=== PATIENT | male | born 2000 | race Caucasian/White ===

== ENCOUNTER 2021-02-12 16:51 | Emergency (ER) | payer BC, SELFPAY ==
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
[2021-02-12 17:21] VITALS: BP 125/83; PULSE 109; RESP 18; TEMP 36.1; O2SAT 100
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
--- NOTE | 2021-02-12 18:29 | PC.NURSE ---
A patient in the waiting room came to intake and states she saw the patient get into a vehicle and leave the facility.
== END 2021-02-12 18:30 | disposition left against medical advice (07) ==
DX: M25.552 Pain in left hip (principal)
CPT/HCPCS: 73502; 73552; 73590; 99199

== ENCOUNTER 2021-06-16 06:44 | Emergency (ER) | payer BC, SELFPAY ==
[2021-06-16 06:45] VITALS: BP 103/59; PULSE 85; RESP 12; TEMP 37; O2SAT 100
--- NOTE | 2021-06-16 07:06 | ECG_ITS ---
Measurements Intervals [place] Rate: 68 P: -18 IN: 118 QRS: 74 QRSD: 88 T: 71 QT: 387 QTc: 414 Interpretive Statements SINUS RHYTHM WITH SHORT IN INTERVAL NONSPECIFIC ST ELEVATION IN ANTEROLAT/INF LEADS BORDERLINE ECG Electronically Signed On 06-16-2021 7:51:41 CDT by Edwin Cosby D.O.
[2021-06-16 07:20] LABS: Basophils Absolute Auto 0.1 K/mm3 (0.0-0.1); Basophils Percent Auto 0.7 % (0.2-1.2); Eosinophils Absolute Auto 0.2 K/mm3 (0-0.3); Hematocrit 40.2 % (42.0-52.0); Immature Granulocyte Absolute 0.04 K/mm3 (0.00-0.031); Immature Granulocyte Percent A 0.5 % (0-0.5); Lymphocytes Absolute Auto 2.29 K/mm3 (0.9-3.2); Lymphocytes Percent Auto 28.2 % (18.3-44.2); Mean Corpuscular HGB Conc 32.3 g/dl (32-36); Mean Corpuscular Hemoglobin 30.5 pg (26-34); Mean Corpuscular Volume 94.4 fl (80-100); Mean Platelet Volume 10.2 fl (7.4-10.4); Monocytes Absolute Auto 0.8 K/mm3 (0.1-0.6); Neutrophils Absolute Auto 4.7 K/mm3 (1.3-6.7); Neutrophils Percent Auto 57.6 % (45.5-73.1); Platelet Count Result 224 k/mm3 (150-375); Red Blood Count 4.26 M/mm3 (4.6-6.20); Red Cell Distribution Width 12.5 % (11.5-14.5); White Blood Count 8.1 K/mm3 (4.5-10.0)
[2021-06-16 07:30] LABS: Acetaminophen < 10 ug/mL (10-30); Ethanol < 10 mg/dL (<10); Salicylate < 1.0 mg/dL (2-20)
[2021-06-16 07:32] LABS: Add Urine Microscopic? YES; Amorphous Sediment Urine Few; Appearance Urine Cloudy (Clear); Bilirubin Urine Negative (Negative); Blood Urine Negative (Negative); Color Urine Yellow (Yellow); Glucose Urine UA Negative (Negative); Ketones Urine Negative (Negative); Leukocyte Esterase Ur 1+ LEU/UL (Negative); Mucus Urine Rare /lpf; Nitrate Urine Negative (Negative); Protein Urine 1+ mg/dL (Negative); RBC Urine 0-2 /hpf (0-2); Specific Grav Ur 1.018 (1.001-1.035); Urobilinogen Urine Negative mg/dL (<2.0); WBC Urine 21-30 /hpf
[2021-06-16 07:34] LABS: Alanine Aminotransferase 17 U/L (4-50); Albumin Level 4.3 g/dL (3.5-5.1); Alkaline Phosphatase 33 U/L (38-126); Anion Gap 5 mmol/L (8-16); Aspartate Amino Transferase 27 U/L (17-59); Bilirubin,Total 0.3 mg/dL (0.2-1.3); Blood Urea Nitrogen 11 mg/dL (9-20); Calcium 9.4 mg/dL (8.4-10.2); Carbon Dioxide 30 mmol/L (22-30); Chloride 103 mmol/L (98-107); Estimated CRCL calculation 99 ml/min; Estimated Glomerular Filt Rate > 60; Glucose 107 mg/dL (65-110); Potassium 3.5 mmol/L (3.4-5.0); Sodium 138 mmol/L (137-145)
--- NOTE | 2021-06-16 07:40 | PC.NURSE ---
Received call from brother asking about pt status. Brother told us to call sister's phone, Linda [phone], when pt is ready to be discharged.
--- NOTE | 2021-06-16 07:46 | ED.ABDPAIN ---
HPI - Abdominal Pain General Chief Complaint: Abdominal Pain Stated Complaint: abd pain caused by swallowing 2-3 gms of meth Time Seen by Provider: 06/16/21 07:08 History of Present Illness HPI narrative: 21 yo male brought in by EMS c/o abdominal pain. He reportedly swallowed methamphetamine after being pulled over by police. He denies any additional drug use. He says that he has diffuse abdominal pain. On my evaluation he is quite somnolent and not consistently staying awake to answer question. Related Data Home Medications Medication Instructions Recorded Confirmed No Home Medications 02/12/21 02/12/21 Allergies Allergy/AdvReac Type Severity Reaction Status Date / Time No Known Allergies Allergy Verified 02/12/21 17:26 Review of Systems Review of Systems: ROS unobtainable: Yes unobtainable due to mental status Cardiovascular: Cardiovascular: Denies chest pain Respiratory: Respiratory: Denies dyspnea Gastrointestinal: Gastrointestinal: Reports abdominal pain and Reports nausea PMFSH Social History Social History (Updated 06/16/21 @ 20:45 by Altaf Victoria MD) Substance use type: amphetamines Gender identity (if verbalized by the patient): Male Exam Const: General: healthy appearing and no acute distress Nutritional Appearance: well nourished HENMT: Mouth: Yes dry mucous membranes Eyes: Pupils: Equal, round and reactive pupils present Neck: Neck: normal visual inspection Resp: Effort & Inspection: normal respiratory effort Auscultation: clear to auscultation bilaterally Cardio: Rate: tachycardic Rhythm: regular rhythm GI: GI Palp: Yes Soft to palpation and No Tenderness to palpation present (GI) Skin: General skin exam: normal color Neuro: General: moves all extremities Other: Awakens to vigorous stimulation and answers questions appropriately Extrem: General: normal to inspection Course Vital Signs Vital signs: Vital Signs Temperature 37.0 C 06/16/21 06:45 Pulse Rate 85 06/16/21 06:45 Respiratory Rate 12 06/16/21 06:45 Blood Pressure 103/59 L 06/16/21 06:45 Pulse Oximetry 100 06/16/21 06:45 Temperature 37.0 C 06/16/21 06:45 Pulse Rate 60 06/16/21 10:27 Respiratory Rate 12 06/16/21 10:27 Blood Pressure 114/56 L 06/16/21 10:27 Pulse Oximetry 99 06/16/21 10:27 MDM - Abdominal Pain MDM Narrative Medical decision making narrative: DDx: overdose, coingestion, GERD, malingering, other Medical Records Attestation: I reviewed the patient's medical records. Lab Data Attestation: I reviewed the patient's lab results. Result diagrams: 06/16/21 07:10 06/16/21 07:10 Labs: Lab Results 06/16/21 06/16/21 06/16/21 Range/Units 07:10 07:10 07:13 WBC 8.1 (4.5-10.0) K/mm3 RBC 4.26 L (4.6-6.20) M/mm3 Hgb 13.0 L (14.0-18.0) g/dL Hct 40.2 L (42.0-52.0) % MCV 94.4 (80-100) fl MCH 30.5 (26-34) pg MCHC 32.3 (32-36) g/dl RDW 12.5 (11.5-14.5) % Plt Count 224 (150-375) k/mm3 MPV 10.2 (7.4-10.4) fl Immature Gran % (Auto) 0.5 (0-0.5) % Neut % (Auto) 57.6 (45.5-73.1) % Lymph % (Auto) 28.2 (18.3-44.2) % [place] % (Auto) 10.0 H (2.6-8.5) % Eos % (Auto) 3.0 (0-4.4) % Baso % (Auto) 0.7 (0.2-1.2) % Lymph # (Auto) 2.29 (0.9-3.2) K/mm3 [place] # (Auto) 0.8 H (0.1-0.6) K/mm3 Eos # (Auto) 0.2 (0-0.3) K/mm3 Baso # (Auto) 0.1 (0.0-0.1) K/mm3 Abs Immat Gran (auto) 0.04 H (0.00-0.031) K/mm3 Absolute Neuts (auto) 4.7 (1.3-6.7) K/mm3 Absolute Nucleated RBC 0.0 (0.0-0.012) K/mm3 Nucleated RBC % 0.0 (0.0-0.2) % Sodium 138 (137-145) mmol/L Potassium 3.5 (3.4-5.0) mmol/L Chloride 103 (98-107) mmol/L Carbon Dioxide 30 (22-30) mmol/L Anion Gap 5 L (8-16) mmol/L BUN 11 (9-20) mg/dL Creatinine 1.00 (0.7-1.3) mg/dL Estim Creat Clear Calc 99 ml/min Estimated GFR > 60 (59 - ) Gluco
[2021-06-16 07:49] VITALS: BP 95/48; PULSE 68; RESP 14; O2SAT 96
[2021-06-16] MEDS: SODIUM CHLORIDE 0.9% IV 1,000 ML 999 ML IV CONT ×2 (07:52→10:39)
[2021-06-16 08:24] LABS: Barbiturate Screen Urine Negative (Negative); Benzodiazepines Screen Urine Negative (Negative)
[2021-06-16 08:35] LABS: Cannabinoid Screen Urine Positive (Negative); Cocaine Screen Urine Negative (Negative); Methadone Screen Urine Negative (Negative); Opiate Screen Urine Negative (Negative); Phencyclidine Screen Urine Negative (Negative)
[2021-06-16 08:45] VITALS: BP 100/56; PULSE 61; RESP 14; O2SAT 98
[2021-06-16 09:48] VITALS: BP 99/52; PULSE 53; RESP 14; O2SAT 98
[2021-06-16 10:27] VITALS: BP 114/56; PULSE 60; RESP 12; O2SAT 99
--- NOTE | 2021-06-16 10:55 | PC.NURSE ---
Went to room to check on pt, pt is not in room - girlfriend at bedside not in room. Fluids dc'd by patient and NS on the floor. [place] [employer] notified immediately and scrap charger made aware. Spoke to Linda at [phone].
--- NOTE | 2021-06-16 10:59 | PC.NURSE ---
Uknown if pt dc'd IV, no evidence of removal left in room - PD notified.
--- NOTE | 2021-06-16 11:00 | PC.NURSE ---
Visitor log reviewed for pt girlfriend that left w/ pt - name and address given to PD. Mckeon (Gregory?) [address] [facility] in [place].
== END 2021-06-16 11:03 | disposition left against medical advice (07) ==
PROVIDERS: Emergency Provider Emergency Medicine
DX: T43.624A Poisoning by amphetamines, undetermined, initial encounter (principal); E86.0 Dehydration
CPT/HCPCS: 36415; 80053; 80307; 81001; 84443; 85025; 87086; 93005; 96360; 99283; J7030

== ENCOUNTER 2022-06-15 12:00 | Emergency (ER) | payer BC, SELFPAY ==
[2022-06-15 12:09] VITALS: BP 113/53; PULSE 65; RESP 16; TEMP 36.7; O2SAT 100
--- NOTE | 2022-06-15 12:17 | ED.URI ---
HPI - URI/Sore Throat General Chief Complaint: Upper Respiratory Infection Stated Complaint: Sore Throat Time Seen by Provider: 06/15/22 12:17 History of Present Illness HPI Narrative: 22-year-old male presented for complaint of sore throat, onset this morning. He states it felt like it was swelling. Endorses significant improvement since awakening. States he felt nauseous when he woke up. Denies vomiting, diarrhea, headache, fevers or chills. Denies lip, tongue, or throat swelling, difficulty breathing. He is able to tolerate oral intake without difficulty. He has not taken anything for symptoms. Denies sick contacts. Related Data Home Medications Medication Instructions Recorded Confirmed No Home Medications 02/12/21 06/15/22 Allergies Allergy/AdvReac Type Severity Reaction Status Date / Time No Known Allergies Allergy Verified 06/15/22 12:12 Review of Systems Review of Systems: CONSTITUTIONAL: Denies body aches, fever, chills, or sweats. EYES: Denies visual changes, redness, or discharge. ENT: Denies rhinorrhea, congestion, or otalgia. CARDIOVASCULAR: Denies chest pain, palpitations, or edema. RESPIRATORY: Denies dyspnea. GASTROINTESTINAL: Denies abdominal pain, vomiting, or diarrhea. SKIN: Denies rash, itching, or wounds. MUSCULOSKELETAL: Denies back pain, joint pain, or myalgia. NEUROLOGIC: Denies headache PMFSH Social History Social History Substance use type: amphetamines Gender identity (if verbalized by the patient): Male Exam Narrative: GENERAL: well-appearing ENT: Mucous membranes moist. TM pearly chowdhury with normal light reflex bilaterally. Oropharynx erythematous without lesions. Tonsils absent. No drooling, no hoarseness, no trismus, uvula midline. No tripod positioning, hot potato voice, or soft palate swelling. NECK: Supple. No lymphadenopathy CHEST: Clear to auscultation, breath sounds equal. Speaks in full sentences HEART: Regular rate and rhythm. No murmur heard. SKIN: Warm, dry, no rash. NEURO: Alert and oriented x3. Course Course Emergency Course: Patient is aware of diagnosis, understands and agrees to treatment plan. Anticipatory guidance given. Patient agrees to follow-up as directed and is aware of reasons to seek care at the emergency department. Portions of this record may have been created with voice recognition software Level of Care: Express Care Visit Vital Signs Vital signs: Vital Signs Temperature 98.0 F 06/15/22 12:09 Pulse Rate 65 06/15/22 12:09 Respiratory Rate 16 06/15/22 12:09 Blood Pressure 113/53 L 06/15/22 12:09 Pulse Oximetry 100 06/15/22 12:09 Oxygen Delivery Room Air 06/15/22 12:09 Temperature 98.0 F 06/15/22 12:09 Pulse Rate 65 06/15/22 12:09 Respiratory Rate 16 06/15/22 12:09 Blood Pressure 113/53 L 06/15/22 12:09 Pulse Oximetry 100 06/15/22 12:09 Oxygen Delivery Room Air 06/15/22 12:09 MDM - URI/Sore Throat MDM Narrative Medical decision making narrative: strep culture sent. Advise supportive treatments. Patient is appropriate for outpatient treatment and follow-up. Differential Diagnosis Differential diagnosis: Likely upper respiratory infection, viral infection and pharyngitis Discharge Plan Discharge Clinical Impression: Pharyngitis Qualifiers: Pharyngitis/tonsillitis etiology: unspecified etiology Qualified Code(s): J02.9 - Acute pharyngitis, unspecified Patient Disposition: Home, Self-Care Condition: Stable Instructions: Antibiotic Form, Pharyngitis (ED) Additional Instructions: Strep culture swab sent You will be notified in a few days if the culture comes back positive for strep, and appropriate antibiotics will be called in at that time. if symptoms are due to a viral illness, it is not treated with antibiotics. Viral symptoms can be present for up to 10-14 days. Recommend Flonase spray and Zyrtec fo
== END 2022-06-15 12:31 | disposition home or self-care (01) ==
PROVIDERS: Emergency Provider Nurse Practitioner Family
DX: J02.9 Acute pharyngitis, unspecified (principal)
CPT/HCPCS: 87081; 99212; G0463

== ENCOUNTER 2024-07-05 16:48 | Emergency (ER) | payer BC, SELFPAY ==
--- NOTE | 2024-07-05 16:50 | ED.DENTAL ---
HPI - Dental/Oral General Chief complaint: Dental/Oral Stated complaint: Dental Pain Time Seen by Provider: 07/05/24 16:50 Source: patient Mode of arrival: ambulatory Limitations: no limitations History of Present Illness HPI Narrative: Willi is a 24-year-old male patient presenting to the clinic today with complaints of dental pain. He reports symptoms started over the last day and half. Thinks he may have a abscess to the left lower jaw and is also having pain to the right upper jaw. Has very poor dentition with multiple cavities and tooth fractures. History of meth use. He denies any fever or chills. Has been taking Aleve/ibuprofen without relief Related Data Allergies Allergy/AdvReac Type Severity Reaction Status Date / Time No Known Allergies Allergy Verified 07/05/24 16:50 Review of Systems Review of Systems: Pertinent positives per HPI. Patient denies any fever, chills, rash, headache, visual changes, dizziness, cough, shortness of breath, chest pain, palpitations, nausea, vomiting, diarrhea, constipation, abdominal pain, or any urinary issues. [facility] Social History Social History Substance use type: amphetamines Gender identity (if verbalized by the patient): Male Comments At the time of my signature, I reviewed and agree with the nursing past medical, surgical, social, and family history. There is no relevant family history pertinent to the patient complaint. Exam Narrative: General: Well-developed, well nourished, in no apparent distress Head: Normocephalic, atraumatic Eyes: Pupils equally round and reactive to light bilaterally, EOM intact, sclera and conjunctive clear, no discharge, lids normal Ears: TMs intact and clear, ear canals clear, no drainage, grossly hearing normal. Nose: Nares patent, no discharge, no inflammation, no sinus tenderness. Mouth: Oral pharynx without lesions or masses, poor dentition with multiple cavities and fractured teeth, MMM. Pustule lesions to the right upper gum and the left lower gums around teeth numbers 2 and 3 and number 19 and 18 Neck: Supple, trachea midline, no enlargement of anterior or posterior cervical nodes, no thyroid masses or goiter palpable. Cardio: Regular rate and rhythm, s1 and s2 normal, no murmur appreciated. Resp: Clear to auscultation bilaterally, no rhonchi, rales, wheezing or rubs Course Course Emergency Course: Portions of this record may have been created with voice recognition software. Level of Care: Express Care Visit Vital Signs Vital signs: Vital signs reviewed MDM - Dental/Oral MDM Narrative Medical decision making narrative: At the time of visit patient is resting comfortably on the exam table. Patient appears to be nontoxic. Plan: I suspect patient has a dental abscess. Prescription for Augmentin was sent to the pharmacy. Follow-up dentist as soon as possible. Supportive measures were discussed with the patient and they voiced understanding discharge instructions and agrees to treatment plan. Return precautions reviewed Differential Diagnosis Differential diagnosis: Likely gingival abscess, dental caries, toothache, dental abscess, fracture of tooth and aphthous ulcer Discharge Plan Discharge Clinical Impression: Dental abscess Patient Disposition: Home, Self-Care Condition: Stable Instructions: Antibiotic Form, Dental Abscess (ED) Additional Instructions: Take Augmentin as prescribed Increase fluids and stay well hydrated May take Tylenol/Motrin as needed for pain May apply Orajel to the affected area to help alleviate pain Take amoxicillin as prescribed Follow-up with your dentist as soon as possible Prescriptions: New amoxicillin-pot clavulanate 875-125 mg tablet 1 tablet PO Q12H 10 Days Qty: 20 0RF Follow-up/Referrals: UNKNOWN,DOCTOR [Non-Staff] - Time of Disposition: 17:14 [facility] Nurs[facility]
[2024-07-05 16:58] VITALS: BP 116/68; PULSE 60; RESP 18; TEMP 37.2; O2SAT 100
== END 2024-07-05 17:23 | disposition home or self-care (01) ==
PROVIDERS: Emergency Provider Nurse Practitioner Family
DX: K04.7 Periapical abscess without sinus (principal)
CPT/HCPCS: 99213; G0463

== ENCOUNTER 2024-09-09 11:35 | Emergency (ER) | payer BC, SELFPAY ==
--- NOTE | ~2024-09-09 | XR_ITS ---
EXAMINATION: XR elbow RT min 3V DATE: 09/09/2024 12:13 INDICATION: Right elbow injury. TECHNIQUE: 4 views of right elbow were obtained. COMPARISON: None. FINDINGS: Alignment is normal. No fracture. Joint spaces are normal. No elbow joint effusion. IMPRESSION: 1. No fracture. Reviewed, dictated and finalized at location A. IMPRESSION: 1. No fracture.
--- NOTE | 2024-09-09 11:39 | ED.UPPEXIN ---
HPI - Extremity Injury (Upper) General Chief Complaint: Extremity Injury, Upper Stated Complaint: Right Elbow Pain Time Seen by Provider: 09/09/24 12:19 Source: patient and RN notes reviewed Mode of arrival: ambulatory Limitations: no limitations History of Present Illness HPI narrative: [age] old male presents concern for right elbow pain. Reports yesterday he was working on his truck, he slipped and landed on his elbow. He reports pain with extension. He reports tenderness. He took ibuprofen complaint: injury to: right and elbow Related Data Home Medications Medication Instructions Recorded Confirmed No Home Medications 09/09/24 09/09/24 Allergies Allergy/AdvReac Type Severity Reaction Status Date / Time No Known Allergies Allergy Verified 09/09/24 11:39 Review of Systems Review of Systems: CONSTITUTIONAL: Denies malaise, chills, sweats, or fever. SKIN: Denies rash or itching, open skin, laceration, abrasion, redness, warmth MUSCULOSKELETAL: Reports right elbow pain and swelling NEUROLOGIC: Denies numbness, weakness All systems reviewed & are unremarkable except as noted in HPI and below PMFSH Social History Social History Substance use type: amphetamines Gender identity (if verbalized by the patient): Male Comments At time of signature, agree with nursing past medical, surgical, social and family history. There is no relevant family history pertinent to the presenting complaint Exam Narrative: GENERAL: Well-appearing, well-nourished, and in no acute distress. HEAD: Normocephalic, atraumatic. EYES: PERRLA, conjunctivae clear NECK: Supple. CHEST: Speaks in full sentences. No respiratory distress. HEART: Regular rate and rhythm. Normal and equal peripheral pulses. EXTREMITIES: Right elbow, right upper extremity has grossly normal strength and sensation, grossly normal range of motion. Mild elbow edema without erythema or ecchymosis. 5/5 strength with elbow flexion and extension. Normal sensation with sensitivity to light touch and pain. Lateral elbow tenderness. No open wounds, no skin tenting, no devitalized tissue or atrophy, no trophic changes, no obvious deformity, alignment normal, nearby joints and structures intact. Distal pulses palpable and equal bilaterally, skin warm, dry, pink. Capillary refill less than 3 seconds. SKIN: Warm, dry, no rash. NEURO: Alert and oriented x3. PSYCH: Normal mood and affect Course Course Emergency Course: Patient is aware of diagnosis, understands and agrees to treatment plan. Anticipatory guidance given. Patient agrees to follow-up as directed and is aware of reasons to seek care at the emergency department. Portions of this record may have been created with voice recognition software Level of Care: Express Care Visit Vital Signs Vital signs: Reviewed. MDM - Extremity Injury (Upper) MDM Narrative Medical decision making narrative: Patients injury and pain is consistent with musculoskeletal etiology. No signs of neurological or vascular compromise on exam. Compartments and tissues are soft without signs of compartment syndrome. Pain is felt appropriate for further evaluation on an outpatient basis. Imaging Data My impression: Images reviewed, interpreted by radiologist, agree, see report. Radiologist's impression: EXAMINATION: XR elbow RT min 3V DATE: 09/09/2024 12:13 INDICATION: Right elbow injury. TECHNIQUE: 4 views of right elbow were obtained. COMPARISON: None. FINDINGS: Alignment is normal. No fracture. Joint spaces are normal. No elbow joint effusion. IMPRESSION: 1. No fracture. Critical Care Time Critical Care Time Critical Care Time: No Discharge Plan Discharge Clinical Impression: Contusion of elbow, right Patient Disposition: Home, Self-Care Condition: Stable Instructions: Contusion in Adults (ED) Additional Instructions: Avoid
[2024-09-09 11:46] VITALS: BP 103/70; PULSE 73; RESP 18; TEMP 37; O2SAT 99
== END 2024-09-09 12:35 | disposition home or self-care (01) ==
PROVIDERS: Emergency Provider Nurse Practitioner
DX: S50.01XA Contusion of right elbow, initial encounter (principal); W01.0XXA Fall on same level from slipping, tripping and stumbling without subsequent striking against object, initial encounter
CPT/HCPCS: 73080; 99213; G0463

== ENCOUNTER 2024-12-15 19:14 | Emergency (ER) | payer BC, SELFPAY ==
[2024-12-15 19:25] VITALS: BP 129/71; PULSE 96; RESP 18; TEMP 37.2; O2SAT 98
--- NOTE | 2024-12-15 19:26 | ED.URI ---
HPI - URI/Sore Throat General Chief Complaint: Ear Stated Complaint: Sinus/Ears Irritation Time Seen by Provider: 12/15/24 19:29 History of Present Illness HPI Narrative: Patient presents with complaint runny nose, headache, more tired than normal, left ear pain. He reports that he has had some exposure to COVID recently, is concerned that this could be what is going on. He has been taking multiple [id number] medications with moderate relief. States most bothersome symptom at this time is left ear discomfort. Related Data Allergies Allergy/AdvReac Type Severity Reaction Status Date / Time No Known Allergies Allergy Verified 12/15/24 19:16 Review of Systems Review of Systems: All systems reviewed & are unremarkable except as noted in HPI and below Constitutional: Constitutional: Reports no additional constitutional complaints, Reports fever(s), Reports headache(s) and Reports lethargy ENT: Reports system reviewed and no additional complaints, except as documented, Reports otalgia, Reports nasal congestion and Reports nasal discharge Cardiovascular: Cardiovascular: Reports no additional cardiovascular complaints Respiratory: Respiratory: Reports no additional respiratory complaints Gastrointestinal: Gastrointestinal: Reports no additional gastrointestinal complaints [facility] Social History Social History Substance use type: amphetamines Gender identity (if verbalized by the patient): Male Exam Const: General: cooperative, no acute distress, alert and awake Orientation/consciousness: oriented to person, oriented to place and oriented to time HENMT: Head: normal to inspection Ears: TM abnormal dull on the left and erythematous on the left Resp: Effort & Inspection: normal respiratory effort and able to speak in complete sentences Auscultation: clear to auscultation bilaterally, no crackles, no rales, no rhonchi and no wheezes Cardio: Palpation: normal PMI Rate: regular rate Rhythm: regular rhythm Heart sounds: S1 normal heart sound present and S2 normal heart sound present Neuro: General: oriented to person, oriented to place and oriented to time Cranial nerves: Yes CN's II-XII intact bilaterally Psych: Appearance: grossly normal Thought process: Normal thought process present Insight: Good insight present (Psych) Judgement: Good judgement present (Psych) Course Course Level of Care: Express Care Visit Vital Signs Vital signs: Vital Signs Temperature 98.9 F 01/17/25 19:25 Pulse Rate 96 12/15/24 19:25 Respiratory Rate 18 12/15/24 19:25 Blood Pressure 129/71 12/15/24 19:25 Pulse Oximetry 98 12/15/24 19:25 Oxygen Delivery Room Air 12/15/24 19:25 Temperature 98.9 F 12/15/24 19:25 Pulse Rate 96 12/15/24 19:25 Respiratory Rate 18 12/15/24 19:25 Blood Pressure 129/71 12/15/24 19:25 Pulse Oximetry 98 12/15/24 19:25 Oxygen Delivery Room Air 12/15/24 19:25 MDM - URI/Sore Throat MDM Narrative Medical decision making narrative: Negative COVID, negative flu. Exam consistent with otitis media. Patient nontoxic appearing, stable for discharge home on p.o. antibiotic therapy. Discharge instructions reviewed with patient, as well as provided in writing per nursing staff. The instructions also include specific and strict return/GO TO THE ER as well as f/u information. All questions have been answered, and the patient deny any further questions with discharge and discharge plan. Some parts of this dictation were generated by voice recognition software and may contain typographical and/or grammatical inaccuracies. Differential Diagnosis Differential diagnosis: Likely upper respiratory infection, otitis media, sinusitis, viral infection, bronchitis and influenza Medical Records Attestation: I reviewed the patient's medical records. Lab Data Attestation: I reviewed the patient's lab results. Labs: Lab Results 12/15/24 Range/Units 19:25 POC Influenza A Ag Negative (Negative) POC Influenza B Ag Negative (Negative) POC SARS CoV-2 Ag Negative (Negative) Discharge Plan Discharge Clinical Impression: Otitis media Patient Disposition: Home, Self-Care Condition: Stable Instructions: Antibiotic Form, Earache (ED) Additional Instructions: Take medications as prescribed. Follow with primary care provider. Emergency department for new or worse symptoms Patient Language: E[place] Prescriptions: New amoxicillin-pot clavulanate 875-125 mg tablet 1 tablet PO Q12H Qty: 14 0RF prednisone 50 mg tablet 50 mg PO DAILY Qty: 5 0RF Follow-up/Referrals: PHYSICIAN,PAINTER AND DECORATOR APPRENTICE [Primary Care Provider] - Stand Alone Forms: Work/School Release IP Time of Disposition: 19:51
[2024-12-15 19:46] LABS: EDCOVIDSCREEN Negative (Negative); EDINFLUASCREEN Negative (Negative); EDINFLUBSCREEN Negative (Negative)
== END 2024-12-15 19:55 | disposition home or self-care (01) ==
PROVIDERS: Emergency Provider Nurse Practitioner Family
DX: H66.92 Otitis media, unspecified, left ear (principal); Z20.822 Contact with and (suspected) exposure to COVID-19
CPT/HCPCS: 87426; 87804; 99213; G0463

== ENCOUNTER 2025-08-27 21:30 | Emergency (ER) | payer SELFPAY ==
--- OUTSIDE RECORDS SUMMARY | 2025-08-27 21:31 | XMS_ITS | Clinical Summary ---
Author Organization [facility] Address [address] [place] [address] Care Team Providers Care Crime Laboratory Analyst Name Role Phone No, Physician Primary Care Provider [phone] Allergies No known active allergies Medications naproxen (NAPROSYN) 500 mg tabletIndicatio ns:Pain Take 1 tablet (500 mg total) by mouth 2 (two) times a day with meals for 5 days 10 tablet 11/04/2024 Active lidocaine (LIDODERM) 5 % Place 1 patch on the skin daily for 7 days Remove & discard patch within 12 hours or as directed by MD. 7 patch 11/04/2024 Active Social History Tobacco Use Types Packs/Day Years Used Date Smoking Tobacco: Never Assessed Personal Safety Answer Date Recorded Have you ever been in or are you currently in a harmful physical or emotional relationship or is someone making you feel afraid or unsafe? 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 Height 180.3 cm (5' 11) 02/05/2025 10:32 PM CDT Body Mass Index 20.72 01/12/2021 6:09 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 Plan of Treatment Health Maintenance Due Date Last Done Comments Depression Screening 2000 Hepatitis C Screening 2000 HPV Vaccines (2 - Male 3-dos e series) 12/11/2015 11/13/2015 Regular Well Visit/Exam 18-64 02/26/2018 Influenza Vaccine (#1) 2025 9, 11/13/2015, 09/09/2011, Additional history exists DTaP/Tdap/Td Vaccine (7 - Td or Tdap) 01/12/2031 01/12/2021, 08/10/2013, 02/24/2010, Additional history exists Pneumococcal vaccine <65 Completed 08/22/2002, 04/2002 Varicella Vaccines Completed 01/07/2007, 05/08/2002 Hepatitis B Screening Completed 02/24/2010 , 05/08/2002, 2000, Additional history exists Insurance [facility] PLAN PLAN PLAN Care Teams Crime Laboratory Analyst Relationship Specialty Start Date End Date No, Physician PCP - General 02/27/19
[2025-08-27 21:32] VITALS: BP 125/68; PULSE 65; RESP 20; TEMP 36.6; O2SAT 96
--- NOTE | 2025-08-27 21:43 | ED_ITS ---
HPI - Wound/Laceration General Chief Complaint: Wound/Laceration Stated Complaint: finger laceration Time Seen by Provider: 08/27/25 21:36 History of Present Illness HPI narrative: 25-year-old healthy male presenting to the emergency department with a dog bite to his right middle finger. Patient states he was breaking up a fight between his 2 dogs at home and got cut accidentally. Denies any bleeding or pain. States his dogs or up-to-date on vaccines and rabies shots. Patient is up-to-date on tetanus within the last 5 years. He is asking us to close his wound with skin glue. No restricted range of motion or paresthesias. No bleeding. Was otherwise in his normal state of health and denies any other complaints. Related Data Allergies Allergy/AdvReac Type Severity Reaction Status Date / Time No Known Allergies Allergy Verified 08/27/25 21:39 Review of Systems Review of Systems: As reviewed above in HPI [facility] Social History Social History Substance use type: amphetamines Gender identity (if verbalized by the patient): Male Exam Narrative: GENERAL: Well-appearing, not any distress HEAD: Normocephalic, atraumatic EYES: PERRLA CHEST: Symmetric chest rise, no distress HEART: 2+ pulses, warm extremity, good capillary refill of each digit. EXTREMITIES: Normal range of motion. No swelling or edema. 1.0 cm jagged laceration over the distal finger tip of the right middle finger ventral surf mirela. No significant bleeding or significant wound dehiscence. No retained foreign body evident. Able to range the PIP MCP and the IP joint with extension and flexion without difficulty or swelling. No pain or bleeding. SKIN: Warm, dry, no rash. NEURO: [No focal deficits]. Alert and oriented [x3.] PSYCH: [Normal mood and affect.] Course Vital Signs Vital signs: Vital Signs Temperature 36.6 C 08/27/25 21:32 Pulse Rate 65 08/27/25 21:32 Respiratory Rate 08/27/25 21:32 Blood Pressure 125/68 08/27/25 21:32 Pulse Oximetry 96 08/27/25 21:32 Temperature 36.6 C 08/27/25 21:32 Pulse Rate 65 08/27/25 21:32 Respiratory Rate 20 08/27/25 21:32 Blood Pressure 125/68 08/27/25 21:32 Pulse Oximetry 96 08/27/25 21:32 Procedures Laceration Laceration 1: Date: 08/27/25 Time: 21:47 Site: upper extremity Side (If applicable): right Size (cm): 1 Description: irregular Depth: simple, single layer Local Anesthetic: none Pre-repair: wound explored, irrigated extensively and deep structures intact ====== Skin Level ====== Skin layer closed with: dermabond and steri strips ====== Subcutaneous Layer ====== ====== Muscle Layer ====== ====== Tendon Layer ====== Dressing: Steri-Strips and bandage applied. MDM - Wound/Laceration MDM Narrative Medical decision making narrative: 25-year-old healthy male presenting to the emergency department with a dog bite to his right middle finger. Patient states he was breaking up a fight between his 2 dogs at home and got cut accidentally. Denies any bleeding or pain. States his dogs or up-to-date on vaccines and rabies shots. Patient is up-to- date on tetanus within the last 5 years. He is asking us to close his wound with skin glue. No restricted range of motion or paresthesias. No bleeding. Was otherwise in his normal state of health and denies any other complaints. Normal range of motion. No swelling or edema. 1.0 cm jagged laceration over the distal finger tip of the right middle finger ventral surface. No significant bleeding or significant wound dehiscence. No retained foreign body evident. Able to range the PIP MCP and the IP joint with extension and flexion without difficulty or swelling. No pain or bleeding. Discussed leaving the wound open to prevent trapping of any bacteria and starting him on Augmentin. Patient declines and wants us to close with skin glue as he works with his hands frequently and does not think bandaging will suffice to keep it from getting infected or contaminated. No indications for sutures at this time, will apply Dermabond and Steri-Strips and given a dose of Augmentin after copiously irrigating the wound and dressing it. Patient given Augmentin prescription and strict return precautions. Discharge Plan Discharge Clinical Impression: Laceration, Dog bite Patient Disposition: Home Condition: Stable Instructions: Antibiotic Form, Animal Bite (ED), Skin Adhesive Care (ED), Skin Adhesive Strips (ED) Additional Instructions: Keep the area clean dry and covered with bandages. The skin glue and Dermabond will flake off naturally after about 3-5 days. Do not peel this off and let it fall off naturally that the scab. Take the antibiotics twice daily for the next 7 days. Tylenol and ibuprofen for any pain. Return with any emergent concerns or signs of infection. Patient Language: Fijian Prescriptions: New amoxicillin-pot clavulanate 875-125 mg tablet 1 tablet PO Q12H 7 Days Qty: 14 0RF Follow-up/Referrals: PHYSICIAN,FACILITY MAINTENANCE MANAGER [Primary Care Provider, Internal Medicine] Time of Disposition: 21:48
== END 2025-08-27 22:10 | disposition home or self-care (01) ==
PROVIDERS: Emergency Provider Student in an Organized Health Care Education/Training Program
DX: S61.252A Open bite of right middle finger without damage to nail, initial encounter (principal); W54.0XXA Bitten by dog, initial encounter
CPT/HCPCS: 12001; 99283; A9270